=== PATIENT | male | born 1960 | race Caucasian/White ===

== ENCOUNTER 2021-03-14 23:08 | Inpatient (IN) | payer BC ==
[~2021-03-14] VITALS: Ht 180.3 cm; Wt 68.0 kg
[2021-03-14] MEDS ORDERED: PANT-47 PO (23:48)
[2021-03-14] MEDS ORDERED: HYDR-3686 PO (23:48)
[2021-03-14] MEDS ORDERED: BENA1TAB PO (23:48)
[2021-03-15] MEDS ORDERED: magnesium hydroxide 30ml (MOM) UD suspension PO PRN (00:30)
[2021-03-15] MEDS ORDERED: ondansetron 4mg rapidly disintigrating tab PO PRN (00:30)
[2021-03-15] MEDS ORDERED: bisacodyl 10mg suppository rectal RC PRN (00:30)
[2021-03-15] MEDS ORDERED: diphenhydrAMINE 50 mg/ml inj IV PRN (00:30)
[2021-03-15] MEDS ORDERED: ondansetron/PF 4mg/2ml inj IV PRN (00:30)
[2021-03-15] MEDS ORDERED: mag hydrox/Alum hydrox/simeth 30ml oral suspension PO PRN (00:30)
[2021-03-15] MEDS ORDERED: morphine 2 MG/ML inj. syringe IV PRN (00:30)
[2021-03-15] MEDS ORDERED: acetaminophen 650mg rectal suppository RC PRN (00:30)
[2021-03-15] MEDS ORDERED: acetaminophen 325mg tablet PO PRN ×2 (00:30)
[2021-03-15] MEDS ORDERED: diphenhydrAMINE 25mg capsule PO PRN (00:30)
[2021-03-15] MEDS ORDERED: HYDROcodone/acetaminophen 5mg/325mg tablet PO PRN (00:30)
[2021-03-15] MEDS ORDERED: dextrose 50%-water 50ml dispensing syringe IV PRN (01:10)
[2021-03-15] MEDS ORDERED: potassium Cl 40MEQ/1/2NS 520ml 520 ML IV PRN (01:10)
[2021-03-15] MEDS ORDERED: magnesium Cl slow-release 64mg tablet PO PRN (01:10)
[2021-03-15] MEDS ORDERED: LORazepam 2 mg/ml vial IV PRN ×2 (01:10)
[2021-03-15] MEDS ORDERED: haloperidol lactate 5mg/ml inj IM PRN (01:10)
[2021-03-15] MEDS ORDERED: potassium Cl 20 mEq SR tablet PO PRN (01:10)
[2021-03-15] MEDS ORDERED: potassium CL 10mEq/100ml bag 100 ML IV PRN (01:20)
[2021-03-15 01:39] LABS: CREATINE KINASE 84 U/L (39-308); MAGNESIUM 1.1 MG/DL (1.5-2.4); PHOSPHORUS 2.5 MG/DL (2.3-4.5)
[2021-03-15 01:40] LABS: LIPASE 246 U/L (73-393)
[2021-03-15] MEDS ORDERED: magnesium 2GM in 50ml NS 50 ML IV PRN (06:05)
[2021-03-15] MEDS ORDERED: magnesium 4gm in 100ml NS 100 ML IV PRN (06:05)
[2021-03-15] MEDS: docusate sod 100mg capsule PO SCH ×2 (06:50→20:02)
[2021-03-15] MEDS: normal saline 1000ml 1,000 ML IV SCH ×3 (07:13→17:06)
[2021-03-15] MEDS: metoprolol succinate 25mg (24-HOUR) SR. Tablet PO SCH (07:14)
[2021-03-15] MEDS: heparin, porcine 5000 units/ml vial SQ SCH ×2 (07:14→20:03)
[2021-03-15] MEDS: thiamine 100mg/ml 2ml inj. IV SCH ×3 (07:14→20:02)
[2021-03-15] MEDS: pantoprazole 40mg Tablet.DR PO SCH (07:14)
[2021-03-15] MEDS: atorvastatin 20mg tablet PO SCH (07:14)
[2021-03-15] MEDS: aspirin 81mg, enteric-coated 1 TAB TABLET.DR PO SCH (07:15)
[2021-03-15] MEDS: lisinopril 5mg tablet PO SCH (08:00)
[2021-03-15] MEDS: folic acid 1mg/0.2ml inj IV SCH (08:00)
--- NOTE | 2021-03-15 08:26 | NUR ---
BREAKFAST TRAY TO BEDSIDE.
[2021-03-15] MEDS: K and/or MAG REPLACEMENT MC SCH ×2 (08:46→19:59)
[2021-03-15 09:06] LABS: BASOPHILS # (AUTO) 0.1 X10'3 (0-0.2); BASOPHILS % (AUTO) 1.5 % (0-1); EOSINOPHILS # (AUTO) 0.1 X10'3 (0-0.9); EOSINOPHILS % (AUTO) 3.1 % (0-6); HEMOGLOBIN 11.2 g/dl (14.0-17.9); LYMPHOCYTES % (AUTO) 20.6 % (21-51); MEAN CORPUSCULAR HGB CONC 34.8 g/dL (33.0-36.5); MEAN CORPUSCULAR VOLUME 100.4 FL (78-98); MEAN PLATELET VOLUME 8.4 FL (7.4-10.4); MONOCYTES # (AUTO) 1.3 X10'3 (0-0.9); MONOCYTES % (AUTO) 27.3 % (2-12); NEUTROPHILS # (AUTO) 2.2 X10'3 (1.8-7.7); NEUTROPHILS % (AUTO) 47.5 % (42-75); PLATELET COUNT 117 X10'3 (140-440); RED BLOOD COUNT 3.19 X10'6 (4.70-6.10); RED CELL DISTRIBUTION WIDTH 12.7 % (11.5-14.5); WHITE BLOOD COUNT 4.7 X10'3 (4.5-11.0)
[2021-03-15 09:09] LABS: ALANINE AMINOTRANSFERASE 67 U/L (12-78); ALBUMIN 2.5 G/DL (3.4-5.0); ALBUMIN/GLOBULIN RATIO 0.6 (1.1-1.5); ALKALINE PHOSPHATASE 95 IU/L (46-116); ANION GAP 11 (8-16); ASPARTATE AMINO TRANSFERASE 153 U/L (10-37); BLOOD UREA NITROGEN 10 MG/DL (7-18); BUN/CREATININE RATIO 10.6 (5.4-32.0); CALCIUM 8.4 MG/DL (8.5-10.1); CHLORIDE 101 MMOL/L (99-107); CREATININE 0.94 MG/DL (0.60-1.10); GLUCOSE 88 MG/DL (70-104); MAGNESIUM 1.1 MG/DL (1.5-2.4); POTASSIUM 3.7 MMOL/L (3.5-5.1); SODIUM 140 MMOL/L (135-145); TOTAL CARBON DIOXIDE 28.4 MMOL/L (24-32); TOTAL PROTEIN 6.8 G/DL (6.4-8.2); eGFR 82 ML/MIN
[2021-03-15 09:34] LABS: HEMOGLOBIN A1C 5.2 % (4.5-6.2)
[2021-03-15 09:47] LABS: APTT 38 SECONDS (22-32); D-DIMER 0.84 MG/L FEU (0-0.50)
[2021-03-15 10:18] LABS: PLATELET ESTIMATE DECREASED; TOTAL CELLS COUNTED 100
[2021-03-15] MEDS ORDERED: metoprolol tartrate 1mg/ml inj IV PRN (13:15)
[2021-03-15] MEDS ORDERED: nitroGLYCERIN 0.4mg SUBLingual tab SL PRN (13:15)
[2021-03-15] MEDS ORDERED: regadenoson 0.4mg/5ml syringe IV ONE (13:15)
[2021-03-15] MEDS ORDERED: aminophylline 250mg/10ml inj. IV PRN (13:15)
--- NOTE | 2021-03-15 13:15 | NUR ---
LUNCH TRAY TO BEDSIDE.
--- NOTE | 2021-03-15 13:41 | NUR ---
NUC MED AT BEDSIDE. PT TO HAVE BLAS TMW. NPO AFTER MIDNIGHT.
--- NOTE | 2021-03-15 16:45 | NUR ---
Received report. Awaiting patient arrival to room 3023M.
[2021-03-15 17:00] VITALS: BP 112/79
--- NOTE | 2021-03-15 17:13 | NUR ---
Received patient to room 3023C. Patient is alert and oriented with no s/s of apparent acute distress at this time. Patient denies any pain or discomfort at this time. Oriented patient to room and call light. Bed is low and locked, side railsx 2 up.
--- NOTE | 2021-03-15 18:32 | NUR ---
Problems reprioritized. Patient report given, questions answered & plan of care reviewed with YAMEL Dewitt.
[2021-03-15 18:41] VITALS: BP 110/79
[2021-03-15] MEDS: temazepam 15mg capsule PO PRN (20:02)
[2021-03-15 22:00] VITALS: BP 109/70
[2021-03-16 02:00] VITALS: BP 124/80
[2021-03-16] MEDS: normal saline 1000ml 1,000 ML IV SCH ×2 (04:57→14:40)
[2021-03-16 06:00] VITALS: BP 126/81
[2021-03-16 07:55] LABS: BASOPHILS % (AUTO) 1.1 % (0-1); EOSINOPHILS # (AUTO) 0.1 X10'3 (0-0.9); EOSINOPHILS % (AUTO) 2.9 % (0-6); HEMATOCRIT 31.5 % (42.0-52.0); HEMOGLOBIN 10.7 g/dl (14.0-17.9); LYMPHOCYTES # (AUTO) 0.7 X10'3 (1.1-4.8); LYMPHOCYTES % (AUTO) 15.9 % (21-51); MEAN CORPUSCULAR HEMOGLOBIN 34.8 PG (27.0-31.0); MEAN CORPUSCULAR HGB CONC 34.1 g/dL (33.0-36.5); MEAN CORPUSCULAR VOLUME 101.9 FL (78-98); MEAN PLATELET VOLUME 8.2 FL (7.4-10.4); MONOCYTES # (AUTO) 1.2 X10'3 (0-0.9); MONOCYTES % (AUTO) 29.3 % (2-12); NEUTROPHILS # (AUTO) 2.1 X10'3 (1.8-7.7); NEUTROPHILS % (AUTO) 50.8 % (42-75); PLATELET COUNT 129 X10'3 (140-440); RED BLOOD COUNT 3.09 X10'6 (4.70-6.10); RED CELL DISTRIBUTION WIDTH 12.9 % (11.5-14.5); WHITE BLOOD COUNT 4.2 X10'3 (4.5-11.0)
[2021-03-16] MEDS: docusate sod 100mg capsule PO SCH ×2 (08:00→19:52)
[2021-03-16] MEDS: K and/or MAG REPLACEMENT MC SCH ×2 (08:00→19:49)
[2021-03-16 08:12] LABS: ALANINE AMINOTRANSFERASE 59 U/L (12-78); ALBUMIN 2.3 G/DL (3.4-5.0); ALBUMIN/GLOBULIN RATIO 0.5 (1.1-1.5); ALKALINE PHOSPHATASE 83 IU/L (46-116); ANION GAP 14 (8-16); ASPARTATE AMINO TRANSFERASE 130 U/L (10-37); BILIRUBIN,TOTAL 1.8 MG/DL (0.1-1.0); BLOOD UREA NITROGEN 8 MG/DL (7-18); BUN/CREATININE RATIO 9.6 (5.4-32.0); CALCIUM 7.7 MG/DL (8.5-10.1); CHLORIDE 105 MMOL/L (99-107); CHOL/HDL RATIO 2.8 (0.00-4.99); CHOLESTEROL 106 MG/DL (0-200); CREATININE 0.83 MG/DL (0.60-1.10); GLUCOSE 85 MG/DL (70-104); HDL CHOLESTEROL 38 MG/DL (35-60); LDL CHOLESTEROL 50 MG/DL (50-100); MAGNESIUM 1.1 MG/DL (1.5-2.4); SODIUM 143 MMOL/L (135-145); TOTAL CARBON DIOXIDE 23.8 MMOL/L (24-32); TOTAL PROTEIN 6.6 G/DL (6.4-8.2); TRIGLYCERIDES 49 MG/DL (20-135); eGFR > 90 ML/MIN
--- NOTE | 2021-03-16 08:40 | NUR ---
pt is scheduled for stress test, K+ dropped to 3.0, paged Dr Swenson to see if he wants to hold stress test until potassium is wnl, Graciela MONTESINOS aware
[2021-03-16] MEDS: potassium Cl 20 mEq SR tablet PO PRN ×3 (09:16→17:05)
[2021-03-16] MEDS: atorvastatin 20mg tablet PO SCH (09:17)
[2021-03-16] MEDS: magnesium Cl slow-release 64mg tablet PO PRN ×3 (09:18→17:05)
[2021-03-16] MEDS: aspirin 81mg, enteric-coated 1 TAB TABLET.DR PO SCH (09:19)
[2021-03-16] MEDS: lisinopril 5mg tablet PO SCH (09:19)
[2021-03-16] MEDS: temazepam 15mg capsule PO PRN (09:19)
[2021-03-16] MEDS: thiamine 100mg/ml 2ml inj. IV SCH ×3 (09:20→21:15)
[2021-03-16] MEDS: metoprolol succinate 25mg (24-HOUR) SR. Tablet PO SCH (09:24)
--- NOTE | 2021-03-16 09:37 | NUR ---
Message: Dr. Swenson I spoke to stress testing in regards to RM 3023C Pb Galdamez and they stated they generally won't due the stress test until potassium is fully repeated (In other words they won't get to his stress test until tomorrow morning.)
[2021-03-16] MEDS: pantoprazole 40mg Tablet.DR PO SCH (09:50)
[2021-03-16] MEDS: heparin, porcine 5000 units/ml vial SQ SCH ×2 (09:50→21:15)
[2021-03-16] MEDS: folic acid 1mg/0.2ml inj IV SCH (09:50)
--- NOTE | 2021-03-16 10:59 | NUR ---
STRESS TEST ON HOLD UNTIL TOMORROW POTASSIUM HAS DROPPED AND NEEDS TO BE REPLACED PER PROTOCOL, NUC MED TECH, PRIMARY NURSE IS AWARE
[2021-03-16 11:00] VITALS: BP 107/69
--- NOTE | 2021-03-16 11:01 | NUR ---
Critical potassium Per. Dr. Swenson replete potassium per protocol and await stress test until tomorrow morning. [facility]
[2021-03-16 12:18] LABS: PLATELET ESTIMATE DECREASED; TOTAL CELLS COUNTED 100
--- NOTE | 2021-03-16 12:19 | NUR ---
Mag replacement Per Dr. Swenson give an additional 4g of mag VIA IV on top of the oral replacement Graciela Click PCU
[2021-03-16] MEDS: magnesium 4gm in 100ml NS 100 ML IV PRN ×2 (12:27→21:15)
[2021-03-16 15:00] VITALS: BP 112/82
[2021-03-16 18:00] VITALS: BP 132/99
--- NOTE | 2021-03-16 18:28 | NUR ---
Problems reprioritized. Patient report given James RN, questions answered & plan of care reviewed with James MONTESINOS.
[2021-03-16 20:40] LABS: POTASSIUM 4.2 MMOL/L (3.5-5.1)
[2021-03-16 22:00] VITALS: BP 120/78
[2021-03-17] VITALS (11 sets, daily range): BP systolic 107–134; BP diastolic 72–94
--- NOTE | 2021-03-17 06:06 | NUR ---
Patient in room PCU 3023. I have received report from James MONTESINOS and had the opportunity to ask questions and assume patient care.
[2021-03-17 07:05] LABS: BASOPHILS # (AUTO) 0.1 X10'3 (0-0.2); BASOPHILS % (AUTO) 1.3 % (0-1); EOSINOPHILS # (AUTO) 0.1 X10'3 (0-0.9); EOSINOPHILS % (AUTO) 2.9 % (0-6); HEMOGLOBIN 10.6 g/dl (14.0-17.9); LYMPHOCYTES # (AUTO) 0.7 X10'3 (1.1-4.8); LYMPHOCYTES % (AUTO) 16.3 % (21-51); MEAN CORPUSCULAR HEMOGLOBIN 34.7 PG (27.0-31.0); MEAN CORPUSCULAR HGB CONC 34.2 g/dL (33.0-36.5); MEAN CORPUSCULAR VOLUME 101.4 FL (78-98); MEAN PLATELET VOLUME 8.1 FL (7.4-10.4); MONOCYTES # (AUTO) 1.4 X10'3 (0-0.9); MONOCYTES % (AUTO) 30.9 % (2-12); NEUTROPHILS # (AUTO) 2.2 X10'3 (1.8-7.7); NEUTROPHILS % (AUTO) 48.6 % (42-75); PLATELET COUNT 149 X10'3 (140-440); RED BLOOD COUNT 3.06 X10'6 (4.70-6.10); RED CELL DISTRIBUTION WIDTH 12.9 % (11.5-14.5); WHITE BLOOD COUNT 4.6 X10'3 (4.5-11.0)
[2021-03-17 07:21] LABS: ALANINE AMINOTRANSFERASE 59 U/L (12-78); ALBUMIN 2.3 G/DL (3.4-5.0); ALBUMIN/GLOBULIN RATIO 0.6 (1.1-1.5); ALKALINE PHOSPHATASE 86 IU/L (46-116); ANION GAP 8 (8-16); ASPARTATE AMINO TRANSFERASE 117 U/L (10-37); BILIRUBIN,TOTAL 1.3 MG/DL (0.1-1.0); BLOOD UREA NITROGEN 6 MG/DL (7-18); BUN/CREATININE RATIO 7.6 (5.4-32.0); CALCIUM 8.2 MG/DL (8.5-10.1); CHLORIDE 110 MMOL/L (99-107); CREATININE 0.79 MG/DL (0.60-1.10); GLUCOSE 97 MG/DL (70-104); POTASSIUM 3.9 MMOL/L (3.5-5.1); SODIUM 144 MMOL/L (135-145); TOTAL CARBON DIOXIDE 25.6 MMOL/L (24-32); TOTAL PROTEIN 6.4 G/DL (6.4-8.2); eGFR > 90 ML/MIN
[2021-03-17] MEDS: thiamine 100mg/ml 2ml inj. IV SCH ×2 (07:47→14:20)
[2021-03-17] MEDS: docusate sod 100mg capsule PO SCH (07:48)
[2021-03-17] MEDS: folic acid 1mg/0.2ml inj IV SCH (07:48)
[2021-03-17] MEDS: pantoprazole 40mg Tablet.DR PO SCH (07:48)
[2021-03-17] MEDS: heparin, porcine 5000 units/ml vial SQ SCH (07:48)
[2021-03-17] MEDS: atorvastatin 20mg tablet PO SCH (07:48)
[2021-03-17] MEDS: aspirin 81mg, enteric-coated 1 TAB TABLET.DR PO SCH (07:48)
[2021-03-17] MEDS: K and/or MAG REPLACEMENT MC SCH (08:00)
[2021-03-17 09:29] LABS: TOTAL CELLS COUNTED 100
[2021-03-17 09:30] LABS: PLATELET ESTIMATE NORMAL; SMUDGE CELLS 1+; TARGET CELLS FEW
[2021-03-17] MEDS ORDERED: regadenoson 0.4mg/5ml syringe IV ONE (09:50)
[2021-03-17] MEDS: lisinopril 5mg tablet PO SCH (11:14)
[2021-03-17] MEDS: metoprolol succinate 25mg (24-HOUR) SR. Tablet PO SCH (11:14)
[2021-03-17] MEDS ORDERED: POTA-207 PO (14:08)
[2021-03-17] MEDS ORDERED: NITR0.4T51 SL (14:08)
[2021-03-17] MEDS ORDERED: ASPI-1071 PO (14:08)
[2021-03-17] MEDS ORDERED: FOLI0.4T6 PO (14:08)
[2021-03-17] MEDS ORDERED: METO-395 PO (14:08)
[2021-03-17] MEDS ORDERED: THIA50TA10 PO (14:08)
[2021-03-17] MEDS ORDERED: MULT-1085 PO (14:08)
[2021-03-17] MEDS ORDERED: MAGN400C PO (14:08)
--- NOTE | 2021-03-17 16:30 | NUR ---
Patient is stable for discharge per Dr Swenson and Dr Mahoney orders. All discharge instructions reviewed with patient and all questions answered. New prescriptions called into pharmacy or sent electronically. PIV discontinued, cannula intact. Tele discontinued. Belongings collected and sent with patient. Patient was wheeled to lobby via nursing staff and cab picked up patient.
[2021-03-19] MEDS ORDERED: folic acid 1mg tablet PO SCH (08:00)
[2021-03-19] MEDS ORDERED: thiamine 100mg tablet PO SCH (08:00)
== END 2021-03-17 16:40 | disposition home or self-care (01) | DRG 69 ==
LOC: ER 23:10 → ED HOLD 03-15 00:34 → PCU 3S 03-15 16:50
PROVIDERS: ADMIT Family Medicine; ATTEND Family Medicine
PROC: 4A02XM4 Measurement of Cardiac Total Activity, External Approach (ICD-10-PCS; principal; 2021-03-17)
PROC: 3E073KZ Introduction of Other Diagnostic Substance into Coronary Artery, Percutaneous Approach (ICD-10-PCS; 2021-03-17)
DX: G45.9 Transient cerebral ischemic attack, unspecified (principal); I21.A1 Myocardial infarction type 2; I50.33 Acute on chronic diastolic (congestive) heart failure; F10.939 Alcohol use, unspecified with withdrawal, unspecified; I20.9 Angina pectoris, unspecified; E03.9 Hypothyroidism, unspecified; F12.10 Cannabis abuse, uncomplicated; K70.30 Alcoholic cirrhosis of liver without ascites; D69.6 Thrombocytopenia, unspecified; B18.2 Chronic viral hepatitis C; E86.0 Dehydration; R29.810 Facial weakness; R47.81 Slurred speech; E83.42 Hypomagnesemia; E87.6 Hypokalemia; J44.9 Chronic obstructive pulmonary disease, unspecified; Z86.73 Personal history of transient ischemic attack (TIA), and cerebral infarction without residual deficits; Z79.899 Other long term (current) drug therapy
CPT/HCPCS: 36415; 70551; 78451; 80053; 80061; 82550; 83036; 83690; 83735; 83880; 84100; 84132; 84439; 84443; 84480; 84484; 85007; 85025; 85379; 85610; 85730; 87081; 93005; 93017; 93306; 99285; A9500; G0378; J1644; J2785; J3411; J3475; J3490; J7030